=== PATIENT | female | born 1970 | race Caucasian/White ===

== ENCOUNTER → 2018-10-19 10:16 | Outpatient (CLI) | payer BC | END | disposition home or self-care (01) | LOC: D.US 10:16 | PROVIDERS: ATTEND Internal Medicine Gastroenterology | DX: R10.9 Unspecified abdominal pain (principal); R11.2 Nausea with vomiting, unspecified ==

== ENCOUNTER → 2018-11-06 13:05 | Outpatient (CLI) | payer BC ==
[2018-11-06 13:54] LABS: BILIRUBIN - DIRECT 0.12 mg/dL (0.00-0.30); BILIRUBIN - INDIRECT 0.38 mg/dL (0.00-1.00); BILIRUBIN - TOTAL 0.5 mg/dL (0.2-1.3); PROTEIN - SERUM 7.3 g/dL (6.4-8.2)
== END | disposition home or self-care (01) ==
LOC: D.LAB 11:45 → D.NM 13:00 → D.LAB 13:05 → D.NM 11-16 09:30
PROVIDERS: ATTEND Internal Medicine Gastroenterology
DX: K76.0 Fatty (change of) liver, not elsewhere classified (principal)

== ENCOUNTER 2018-11-25 10:00 | Day surgery (SDC) | payer BC ==
[2018-11-24 11:30] LABS: HEMATOCRIT 41.6 % (36.0-48.0); HEMOGLOBIN 14.5 g/dL (12-16); MCH 29.4 pg (26.0-34.0); MCHC 34.9 g/dL (31.0-37.0); MCV 84.2 fL (80.0-100.0); MEAN PLATELET VOLUME 9.7 fL (7.4-10.4); RBC 4.94 10x6/uL (4.00-5.40); RDW 12.8 % (11.5-14.5); WBC 5.3 10x3/uL (4.8-10.8)
[~2018-11-25] VITALS: Ht 162.6 cm; Wt 95.3 kg
[~2018-11-25 10:00] MED LIST: LEXAPRO10 MG PO; LINZESS145 MCG PO; OMEPRAZOLE20 M1 PO; ZANAFLEX4 MG PO
[2018-11-25 10:36] VITALS: BP 112/68; Ht 162.6 cm; Wt 95.3 kg
[2018-11-25] MEDS ORDERED: HYDROCODON-ACE1 EAC7 PO (12:43)
--- NOTE | 2018-11-25 13:35 | NUR ---
REC'D FROM RR. FAMILY AT BEDSIDE. STERI STRIPS TO SURGICAL INCISIONS CDI. LEMON JAMUL SODA BRUGHT TO PATIENT.
--- NOTE | 2018-11-25 13:50 | NUR ---
AMBULATED TO BATHROOM AND VOIDED WITHOUT DIFFICULTY. WAITING FOR FL TRAY. [facility].
--- NOTE | 2018-11-25 14:46 | NUR ---
TOLERATED FL DIET. NORCO 5MG (2)TABS ADMINISTERED PO PER ORDERS FOR C/O PAIN -12/30.
--- NOTE | 2018-11-25 15:05 | NUR ---
RATES PAIN 1-2/10.
--- NOTE | 2018-11-25 15:15 | NUR ---
WRITTEN AND VERBAL DC INST. GIVEN TO PATIENT ALONG WITH RX. VERBALIZED UNDERSTANDING.
--- NOTE | 2018-11-25 15:35 | NUR ---
DC'D HOME WITH FAMILY VIA PRIVATE VEHICLE. STABLE AT TIME OF DC.
== END 2018-11-25 15:35 | disposition home or self-care (01) ==
LOC: D.PAN 10:00 → D.OPS 12:15 → D.PAN 12:15
PROVIDERS: Anesthesiology; ATTEND Surgery
DX: K80.10 Calculus of gallbladder with chronic cholecystitis without obstruction (principal); Z01.812 Encounter for preprocedural laboratory examination

== ENCOUNTER → 2019-05-10 10:01 | Outpatient (CLI) | payer BC ==
[2018-11-25 10:36] VITALS: BMI 36.1
[~2019-05-10 10:01] MED LIST changes: +HYDROCODON-ACE1 EAC7 PO
[2019-05-10 11:27] LABS: ALBUMIN 3.8 g/dL (3.4-5.0); BILIRUBIN - DIRECT 0.11 mg/dL (0.00-0.30); BILIRUBIN - INDIRECT 0.38 mg/dL (0.00-1.00); BILIRUBIN - TOTAL 0.49 mg/dL (0.2-1.3)
[2019-05-11 09:10] LABS: HEPATITIS C ANTIBODY <0.1 S/CO RAT (0.0-0.9)
== END | disposition home or self-care (01) ==
LOC: D.US 04-27 09:30
PROVIDERS: ATTEND Internal Medicine Gastroenterology
DX: K76.0 Fatty (change of) liver, not elsewhere classified (principal); K82.4 Cholesterolosis of gallbladder; R11.2 Nausea with vomiting, unspecified; R10.9 Unspecified abdominal pain

== ENCOUNTER → 2019-10-27 08:49 | Outpatient (CLI) | payer BC ==
[2018-11-25 10:36] VITALS: BMI 36.1
[2019-10-27 09:23] LABS: ALBUMIN 3.5 g/dL (3.4-5.0); BILIRUBIN - DIRECT 0.11 mg/dL (0.00-0.30); BILIRUBIN - INDIRECT 0.32 mg/dL (0.00-1.00); BILIRUBIN - TOTAL 0.43 mg/dL (0.2-1.3)
== END | disposition home or self-care (01) ==
LOC: D.LAB 08:49 → D.US 09:30
PROVIDERS: ATTEND Internal Medicine Gastroenterology
DX: K76.0 Fatty (change of) liver, not elsewhere classified (principal)